=== PATIENT | male | born 1965 | race Caucasian/White ===

== ENCOUNTER 2016-03-14 08:58 | Emergency (ER) | payer OTHER ==
[2016-03-14 09:05] VITALS: BP 135/90; PULSE 77; TEMP 97.4; BMI 31.0
--- NOTE | 2016-03-14 09:38 | PDOC ---
Suture Removal/Wound Check HPI - History of Present Illness Chief Complaint: Revisit,Wound Recheck Stated Complaint: FOLLOW-UP Time Seen by Provider: 03/14/16 09:19 History Source: Yes: Patient Exam Limitations: Yes: No Limitations Treated at: [facility] ED - Previous ED Treatment Type of procedure performed on last visit: Yes: Other (treated for cellulitis abdomen) Antibiotics Prescribed: Yes (Dalvance given here Bactroban bid ) - Onset of Previous Treatment Date of Occurence: 03/12/16 Timing/Duration/Severity of Onset: reports: Changing over time (getting better) Comment:: 03/14/16 09:Patient Chief complaint: Patient here for wound check was treated on 03/12/2016 History of present illness: Patient is a 50-year-old male with no significant medical history who was seen here on 03/12/2016 and was treated for cellulitis of abdomen from a questionable insect bite. He reports that he does shave his pubic area and had shaved area where it's scab is slightly midline to right mid lower abdomen. He reports that he has been applying Bactroban twice daily to the area. Patient's had picture of abdomen patient that no longer has any redness of skin or tenderness of skin mid lower abdomen. He has been afebrile. Past History - Past Medical History Allergies/Adverse Reactions: Allergies tetanus and diphtheria toxoids Allergy (Verified 03/14/16 09:02) Home Medications: Ambulatory Orders NK [No Known Home Medication] 03/14/16 General: Yes: no pertinent history - Social History Smoking Status: Never smoked Suture Removal/Wound Check PE - Physical Exam Laceration/Wound Check Symptoms: reports: Other Comment (decreased redness and tenderness of abdomen tiny scabbed area,non fluculant) Location of Laceration/Wound: bilateral: Abdomen (mid abdomen erythema had been crossed abdomen with tiny scabbed area slightly right to midline, no erythema of area noted presently disc tiny scabbed area with no surrounding erythema or flocculence) *Review of Systems - Review of Systems Able to Perform ROS?: Yes Constitutional: No: Symptoms Reported HEENTM: No: Symptoms Reported Respiratory: No: Symptoms reported Cardiac (ROS): No: Symptoms Reported ABD/GI: No: Symptoms Reported : No: Symptoms Reported Musculoskeletal: No: Symptoms Reported Integumentary: Yes: Other (tiny scabbed area piece size with no surrounding erythema or tenderness, she had been treated here for cellulitis of abdomen on 03/12/2016 and was given Dalvance, and has been applying Bactroban cream twice a day to area) Medical Decision Making - Medical Decision Making 03/14/16 09:38 Patient is a 50-year-old male with no significant medical history who was seen here on 03/12/2016 and was treated for cellulitis of abdomen from a questionable insect bite. He reports that he does shave his pubic area and had shaved area where it's scab is slightly midline to right mid lower abdomen. He reports that he has been applying Bactroban twice daily to the area. Patient's had picture of abdomen patient that no longer has any redness of skin or tenderness of skin mid lower abdomen. He has been afebrile. Cellulitis of mid lower abdomen resolved Plan: Apply Bactroban twice daily to scabbed area until resolved *DC/Admit/Observation/Transfer Diagnosis at time of Disposition: Visit for wound check - Discharge Dispostion Disposition: HOME Condition at time of disposition: Stable - Patient Instructions Additional Instructions: continue to apply Bactroban to scabbed area until scabbed area is totally resolved Return to emergency room if any fever or redness of the mid lower abdomen reoccurs or any tenderness of area Follow-up with your primary care provider within the next week Patient voiced understanding of discharge instructions and all questions were answered
== END 2016-03-14 09:52 | disposition home or self-care (01) ==
LOC: JERFT 08:58 → JER 08:58 → JERFT 09:52
DX: L03.311 Cellulitis of abdominal wall (principal)
CPT/HCPCS: 99281-25